=== PATIENT | female | born 1950 | race African-American/Black ===

== ENCOUNTER 2017-03-18 08:54 | Emergency (ER) | payer MEDICARE, MEDICAID ==
[~2017-03-18] VITALS: Ht 170.2 cm; Wt 54.0 kg
[~2017-03-18 08:54] MED LIST: QUET200T PO; TRAM50TA3 PO
[2017-03-18] MEDS ORDERED: ATOR10TA69 PO (09:00)
[2017-03-18 10:34] LABS: BASOPHILS % 0.4 % (0.0-2.0); EOSINOPHILS % 0.1 % (0.0-5.0); HEMOGLOBIN. 14.6 g/dL (12.0-16.0); LYMPHOCYTES % 14.6 % (20.0-50.0); MEAN CORPUSCULAR HEMOGLOBIN 32.6 pg (28.0-32.0); MEAN CORPUSCULAR VOLUME 95.8 fL (81.0-99.0); MEAN PLATELET VOLUME 8.6 fl (7.4-10.4); MONOCYTES % 7.5 % (2.0-8.0); NEUTROPHILS % 77.4 % (40.0-76.0); PLATELET 265 x1000/uL (130-400); RED BLOOD CELL COUNT 4.49 mill/uL (4.2-5.4); RED CELL DISTRIBUTION WIDTH 13.5 % (11.6-14.6)
[2017-03-18 10:39] LABS: PARTIAL THROMBOPLASTIN TIME 24.3 sec (23.4-31.0); PROTHROMBIN TIME 10.1 sec (9.4-11.6)
[2017-03-18 10:48] LABS: CARBON DIOXIDE 27 mEq/L (21-32); CHLORIDE 101 mEq/L (98-107); CREATINE KINASE 228 IU/L (26-192); TROPONIN I < 0.02 ng/mL (0.00-0.04)
[2017-03-18] MEDS ORDERED: LORAZEPAM 2MG/ML CPJ IV ONE (11:00)
[2017-03-18 12:33] LABS: CLARITY URINE TURBID (CLEAR); COLOR URINE YELLOW (YELLOW); KETONES URINE NEGATIVE (NEGATIVE); LEUKOCYTE ESTERASE URINE 1+ (NEGATIVE); NITRITE URINE NEGATIVE (NEGATIVE); OCCULT BLOOD URINE NEGATIVE (NEGATIVE); PH URINE >=9.0 (4.5-8.0); PROTEIN URINE TRACE (NEGATIVE); SPECIFIC GRAVITY URINE 1.025 (1.005-1.030); UROBILINOGEN URINE 0.2 E.U./dL (0.2-1.0)
[2017-03-18 12:57] LABS: *AMPHETAMINES SCREEN URINE NEGATIVE (NEGATIVE); *BARBITURATES SCREEN URINE NEGATIVE (NEGATIVE); *BENZODIAZEPINES SCREEN URINE PRESUMTIVE POSITIVE (NEGATIVE); *COCAINE SCREEN URINE NEGATIVE (NEGATIVE); CANNABINOID URINE SCREEN PRESUMTIVE POSITIVE (NEGATIVE); METHADONE URINE SCREEN NEGATIVE (NEGATIVE); OPIATES URINE SCREEN NEGATIVE (NEGATIVE); PHENCYCLIDINE URINE SCREEN NEGATIVE (NEGATIVE)
[2017-03-18 13:45] VITALS: BP 185/98
[2017-03-18] MEDS ORDERED: IBUPROFEN 800MG TABLET PO ONE (16:00)
== END 2017-03-18 17:00 | disposition home or self-care (01) ==
LOC: ER 09:09
DX: R10.13 Epigastric pain (principal); I10 Essential (primary) hypertension; E86.0 Dehydration; N39.0 Urinary tract infection, site not specified; F12.10 Cannabis abuse, uncomplicated; M54.89 Other dorsalgia; F13.10 Sedative, hypnotic or anxiolytic abuse, uncomplicated; F41.9 Anxiety disorder, unspecified; F31.9 Bipolar disorder, unspecified; E78.00 Pure hypercholesterolemia, unspecified; I51.9 Heart disease, unspecified; Z98.890 Other specified postprocedural states; W18.30XA Fall on same level, unspecified, initial encounter; Y93.89 Activity, other specified; Y92.018 Other place in single-family (private) house as the place of occurrence of the external cause
CPT/HCPCS: 36415; 71010; 72170; 80053; 80305; 81001; 82550; 82553; 83690; 84484; 85025; 85610; 85730; 93005; 96374; 99285; J2060